=== PATIENT | female | born 1980 | race Hispanic/Latino ===

== ENCOUNTER 2017-03-21 18:13 | Outpatient (CLI) | payer BC ==
[2017-03-21] MEDS ORDERED: LACTATED RINGERS 500 ML IV ONE (18:18)
--- NOTE | 2017-03-21 19:16 | Event Note ---
<JAZMIN GENTILE - Last Filed: 03/21/17 19:13> Date: 03/21/17 Patient slipped down wet stairs and landed on bottom, initially reported no FM but she is now feeling movement. u/s showed no evidence of abruption. patient denies cramping, ctx leaking or bleeding. Abd soft and nontender. Blood type A+ . Patient c/o tailbone pain but denies need for medication at this time. Will observe for ctx and d/c home if stable. <JULIÁN ALEXANDRA - Last Filed: 03/21/17 22:49> Agree with note and exam. d/c home if stable.
[2017-03-21] MEDS ORDERED: MORPHINE IM ONE (19:22)
[2017-03-21] MEDS ORDERED: BRETHINE ONE (23:00)
[2017-03-21] MEDS ORDERED: BRETHINE SUB-Q ONE (23:11)
[2017-03-21 23:40] VITALS: BP 99/59
--- NOTE | 2017-03-22 09:59 | Ultrasound Report ---
OB sonogram: Findings: Single intrauterine gestation noted with cephalic presentation. Placenta is fundal and grade 0. heart rate 152 per minute. No evidence of placental abruption. Impression: No evidence of abruption.
== END 2017-03-21 23:48 | disposition home or self-care (01) ==
LOC: TRG 18:13 → LD 18:14 → TRG 23:48
PROVIDERS: ATTEND Obstetrics & Gynecology
DX: O09.522 Supervision of elderly multigravida, second trimester (principal); O47.02 False labor before 37 completed weeks of gestation, second trimester; O26.892 Other specified pregnancy related conditions, second trimester; W01.0XXA Fall on same level from slipping, tripping and stumbling without subsequent striking against object, initial encounter; Z3A.23 23 weeks gestation of pregnancy; Y93.89 Activity, other specified; Y92.89 Other specified places as the place of occurrence of the external cause; Y99.8 Other external cause status
CPT/HCPCS: 76815; J2270; J3105; J7120

== ENCOUNTER 2017-07-15 20:18 | Inpatient (IN) | payer BC ==
[2017-07-15] MEDS ORDERED: MINERAL OIL PO PRN (22:39)
[2017-07-15] MEDS ORDERED: ePHEDrine SULFATE IV PRN (22:39)
[2017-07-15] MEDS ORDERED: SUBLIMAZE IV PRN (22:39)
[2017-07-15] MEDS ORDERED: BRETHINE IVP PRN (22:39)
[2017-07-15] MEDS ORDERED: XYLOCAINE 2% INFILTRATI ONE (22:39)
[2017-07-15] MEDS ORDERED: ZOFRAN IV PRN (22:39)
[2017-07-15] MEDS ORDERED: BRETHINE SUB-Q PRN (22:39)
--- NOTE | 2017-07-15 22:40 | History and Physical Report ---
Past History - Obstetrical History : 1 Medications and Allergies Allergies Allergy/AdvReac Type Severity Reaction Status Date / Time No Known Allergies Allergy Unverified 03/21/17 23:11 - Vital Signs Vital signs: Vital Signs Pulse BP 77 129/82 07/15/17 21:01 07/15/17 21:01 Temp Pulse Resp BP Pulse Ox 77 129/82 07/15/17 21:01 07/15/17 21:01 Results All other labs normal.
--- NOTE | 2017-07-15 22:50 | History and Physical Report ---
History of Present Illness Date of examination: 07/15/17 Date of admission: 07/15/17 Chief complaint: decreased movement History of present illness: Pt called provider c/o decreased movement stating in in 1.5 hours and lying down after hydration only noted two movements. Once in triage pt was note to have some late decelerations with contractions. Pt examined and cx favorable at 3-4/80/-1 to -2. Pt has been at this exam for the last several days with contractions. Pt EFW on 07/03/17 was 7lbs 14oz in the 76%tile. Pt continues to c /o contractions. Pt admitted for augmentation of labor due to decreased fm at late term. Nature of labor augmentation was d/w pt and her in detail. Risk of failure or arrest of labor due size were also d/w pt and and all questions were addressed and answered. hob grinder aware of admission. EDC Calculations LMP: 07/17/2017 EDC Confirmation: 07/17/2017 Gestational Age: 6 4/7 weeks Past History : 1 Past Medical History: Reviewed history from 04/15/2016 and no changes required: Negative Past Medical History Past Surgical History: Reviewed history from 04/15/2016 and no changes required: Knee Arthroscopy(R) oral Appendectomy (2015) Past Medical History Abnormal PAP: positive Social Hx: Patient is Smoking History: Patient has never smoked. Infection History Hx of STD: none Personal hx. of genital herpes: no Partner hx. of genital herpes: no Rash, Viral, or Febrile illness since last LMP? no Varicella/Chicken Pox Status: Previous Disease TB Risk: no PPD Result (mm): 06/2016 negative Genetic History Congenital Heart Defect: Mom: no Dad: no Amandeep Disease: Mom: no Dad: no Thalassemia Mom: no Dad: no Neural Tube Defect Mom: no Dad: no Down's Syndrome Mom: no Dad: no Tim-Sachs Mom: no Dad: no Sickle Cell Disease/Trait Mom: no Dad: no Hemophilia Mom: no Dad: no Muscular Dystrophy Mom: no Dad: no Cystic Fibrosis Mom: no Dad: no Casey Chorea Mom: no Dad: no Mental Retardation Mom: no Dad: no Fragile X Mom: no Dad: no Other Genetic/Chromosomal Disorder Mom: no Dad: no Child w/other defect Mom: no Dad: no Enviromental Exposures Enviromental Exposures Reviewed Xray Exposure: no Medication, drug, or alcohol use since LMP: no Chemical/Other Exposure: no Exposure to Cat Liter: no Hx of Parvovirus (Fifth Disease): no Active Medications (reviewed today): CITRANATAL B-CALM 20-1 & 25 (2) MG ORAL MISC (PRENAT W/O A [id number] &B6) 1 po qd Current Allergies (reviewed today): Past History Past Medical History: no pertinent history Past Surgical History: appendectomy, other (knee scope) 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 History: denies: abnormal PAP smear, chlamydia, gonorrhea, herpes, HIV, trichomonas Social history: no significant social history, - Obstetrical History Expected Date of Delivery: 07/17/17 Actual Gestation: 39 Week(s) 5 Day(s) : 1 Medications and Allergies Allergies Allergy/AdvReac Type Severity Reaction Status Date / Time No Known Allergies Allergy Unverified 03/21/17 23:11 Active Meds: Active Medications Ephedrine Sulfate (Ephedrine Sulfate) 10 mg IV Q2M PRN PRN Reason: Hypotension Stop: 07/15/17 22:44 Fentanyl (Sublimaze) 100 mcg IV Q2H PRN PRN Reason: Labor Pain Lactated Ringer's (Lactated Ringers) 1,000 mls @ 125 mls/hr IV DIRECT BRADY Lidocaine (Xylocaine 2%) 20 ml INFILTRATI ONCE ONE Stop: 07/15/17 22:40 Mineral Oil (Mineral Oil) 30 ml PO QHS PRN PRN Reason: Constipation Review of Systems All systems: negative - Vital Signs Vital signs: Vital Signs Pulse BP 77 129/82 07/15/17 21:01 07/15/17 21:01 Temp Pulse Resp BP Pulse Ox 77 129/82 07/15/17 21:01 07/15/17 21:01 - Physical Exam Breasts: Positive: deferred Cardiovascular: Normal S1, Normal S2 Lungs: Positive: Clear to auscultation, Normal air movement Abdomen: Positive: normal appearance, normal bowel sounds. Negative: distention Genitourinary (Female): Positive: normal external genitalia, normal perenium Vulva: both: normal (no lesions) - Obstetrical FHR: category 1 (now at this time previously was cat II) Cervical Dilatation: 3.5 Cervical Effacement Percentage: 80 station: -1 to -2 Uterine Contraction Pattern: Regular Uterine Tone Measurement Phase: Resting Uterine Contraction Intensity: Mild Results All other labs normal. Assessment and Plan - Patient Problems (1) 39 weeks gestation of Current Visit: Yes Status: Acute (2) Decreased movement during in third trimester, antepartum Current Visit: Yes Status: Acute Qualifiers: Fetus number: single or unspecified fetus Qualified Code(s): O36.8130 - Decreased movements, third trimester, not applicable or unspecified Plan to address problem: -now with movement but still with occasional late decel noted -labor augmentation at this time (3) Labor, prolonged latent phase Current Visit: Yes Status: Acute Plan to address problem: -labor augmentation -anticipate -all questions were addressed and answered.
[2017-07-15] MEDS ORDERED: PITOCin/NS 30 UNIT/500ML 30 UNITS/500 ML BAG IV SCH ×2 (23:00)
[2017-07-15] MEDS ORDERED: PITOCin/NS 20 UNIT/1000ML DRIP 20 UNITS/1,000 ML BAG IV SCH (23:00)
[2017-07-15 23:34] LABS: Hematocrit 35.1 % (30.3-42.9); Hemoglobin 11.9 gm/dl (10.1-14.3); Mean Corpuscular HGB Conc 34 % (30-34); Mean Corpuscular Hemoglobin 31 pg (28-32); Mean Corpuscular Volume 92 fl (79-97); Platelet Count 126 K/mm3 (140-440); Red Blood Count 3.83 M/mm3 (3.65-5.03); Red Cell Distribution Width 13.6 % (13.2-15.2); White Blood Count 11.4 K/mm3 (4.5-11.0)
[2017-07-15] MEDS: LACTATED RINGERS 1,000 ML IV SCH (23:35)
[2017-07-16] MEDS ORDERED: PEPCID IV SCH (04:45)
[2017-07-16] MEDS ORDERED: PEPCID IV ONE (04:55)
[2017-07-16] MEDS: LACTATED RINGERS 1,000 ML IV SCH ×3 (06:08→11:35)
--- NOTE | 2017-07-16 07:48 | Ultrasound Report ---
BIOPHYSICAL PROFILE: well-being. 2 - breathing movements 2 - movements 2 - posture and tone 2 - Qualitative amniotic fluid volume 8 - TOTAL SCORE OF POSSIBLE 8 Heart Rate (bpm) 151 Estimated gestational age 39 weeks 5 days. LIMITED OB ULTRASOUND: Gestation: Saini VU = 17.6 cm Heart Rate: 138 BPM
--- NOTE | 2017-07-16 07:58 | Progress Note ---
Assessment and Plan patient tolerating ctx well, occasional late decels noted on tracing. AROM clear fluid - ISE and IUPC. Plan for epidural and continued titration of pitocin. Dr. Fong aware of patient's status. - Patient Problems (1) 39 weeks gestation of Current Visit: Yes Status: Acute (2) Labor, prolonged latent phase Current Visit: Yes Status: Acute Subjective - Subjective Date of service: 07/16/17 Principal diagnosis: IUP @ 39+6, early labor Patient reports: movement normal, contractions Objective - Vital Signs Vital Signs: Vital Signs - 12hr 07/15/17 07/15/17 07/15/17 21:01 23:40 23:50 Temperature 98.3 F Pulse Rate 77 91 H Respiratory 18 Rate Blood Pressure 129/82 134/85 07/16/17 07/16/17 02:54 02:55 Temperature 98.3 F Pulse Rate 91 H Respiratory 18 Rate Blood Pressure 109/59 - Exam Breasts: normal Cardiovascular: Regular rate Lungs: Clear to auscultation, Normal air movement Abdomen: Present: normal appearance, soft, normal bowel sounds Vulva: both: normal Uterus: Present: normal FHR: category 2 Uterine Contraction Monitor Mode: Internal Cervical Dilatation: 3.5 (AROM, ISE and IUPC placed) Cervical Effacement Percentage: 80 station: -1 Uterine Contraction Pattern: Regular Uterine Tone Measurement Phase: Contraction Uterine Contraction Intensity: Mild Extremities: normal Deep Tendon Reflex Grade: Normal +2 - Labs Labs: Abnormal Labs 07/15/17 23:10 WBC 11.4 H Plt Count 126 L Laboratory Results - last 24 hr 07/15/17 07/15/17 23:10 23:10 WBC 11.4 H RBC 3.83 Hgb 11.9 Hct 35.1 MCV 92 MCH 31 MCHC 34 RDW 13.6 Plt Count 126 L Blood Type A POSITIVE Antibody Screen Negative
[2017-07-16] MEDS ORDERED: fentaNYL-BUPIV 2 MCG/ML-0.125% 200 MCG/100 ML BAG EPIDURAL ONE (08:55)
[2017-07-16] MEDS: fentaNYL-BUPIV 2 MCG/ML-0.125% 200 MCG/100 ML BAG EPIDURAL SCH ×2 (09:22→17:18)
--- NOTE | 2017-07-16 09:24 | Anesthesia Consultation ---
Anesthesia Consult and Med Hx Date of service: 07/16/17 - Airway Anesthetic Teeth Evaluation: Good ROM Head & Neck: Adequate Mental/Hyoid Distance: Adequate Mallampati Class: Class II Intubation Access Assessment: Probably Good - Pre-Operative Health Status ASA Pre-Surgery Classification: ASA2 Proposed Anesthetic Plan: Epidural, Spinal - Pulmonary Hx Asthma: No COPD: No Hx Pneumonia: No - Cardiovascular System Hx Hypertension: No - Central Nervous System Hx Seizures: No Hx Psychiatric Problems: No - Endocrine Hx Renal Disease: No Hx End Stage Renal Disease: No Hx Hypothyroidism: No Hx Hyperthyroidism: No - Hematic Hx Anemia: No Hx Sickle Cell Disease: No - Other Systems Hx Alcohol Use: No
[2017-07-16] MEDS ORDERED: ePHEDrine SULFATE IV PRN (10:30)
[2017-07-16] MEDS ORDERED: NARCAN 2 MG/2 ML IV PRN (10:30)
--- NOTE | 2017-07-16 11:41 | Progress Note ---
Assessment and Plan doing well, comfortable with epidural. SVE good change, continue to reposition 30 minutes and titrating pitocin per protocal. Dr. Fong updated. - Patient Problems (1) 39 weeks gestation of Current Visit: Yes Status: Acute (2) Labor, prolonged latent phase Current Visit: Yes Status: Acute Subjective - Subjective Date of service: 07/16/17 Principal diagnosis: IUP @ 39+6, labor, epidural Patient reports: new complaints (comfortable with epidural), movement normal Objective - Vital Signs Vital Signs: Vital Signs - 12hr 07/15/17 07/15/17 07/16/17 23:40 23:50 02:54 Temperature 98.3 F 98.3 F Pulse Rate 91 H Respiratory 18 18 Rate Blood Pressure 134/85 07/16/17 07/16/17 07/16/17 02:55 09:17 09:19 Temperature Pulse Rate 91 H 105 H 102 H Respiratory Rate Blood Pressure 109/59 145/70 126/60 07/16/17 07/16/17 07/16/17 09:22 09:24 09:25 Temperature 98.5 F Pulse Rate 97 H 98 H Respiratory Rate Blood Pressure 125/61 123/63 07/16/17 07/16/17 07/16/17 09:28 09:31 09:34 Temperature Pulse Rate 103 H 103 H 102 H Respiratory Rate Blood Pressure 114/59 112/58 113/61 07/16/17 07/16/17 07/16/17 09:37 09:54 10:08 Temperature Pulse Rate 90 78 93 H Respiratory Rate Blood Pressure 110/58 112/58 111/60 07/16/17 07/16/17 07/16/17 10:19 10:35 10:49 Temperature Pulse Rate 99 H 102 H 90 Respiratory Rate Blood Pressure 107/62 111/67 113/66 07/16/17 07/16/17 11:04 11:19 Temperature Pulse Rate 90 90 Respiratory Rate Blood Pressure 110/66 110/65 - Exam Breasts: normal Cardiovascular: Regular rate Lungs: Clear to auscultation, Normal air movement Abdomen: Present: normal appearance, soft Vulva: both: normal Uterus: Present: normal FHR: category 2 Uterine Contraction Monitor Mode: Internal Cervical Dilatation: 5.5 Cervical Effacement Percentage: 90 station: -1 Uterine Contraction Pattern: Regular Uterine Tone Measurement Phase: Contraction Uterine Contraction Intensity: Mild Extremities: normal Deep Tendon Reflex Grade: Normal +2 - Labs Labs: Abnormal Labs 07/15/17 23:10 WBC 11.4 H Plt Count 126 L Laboratory Results - last 24 hr 07/15/17 07/15/17 23:10 23:10 WBC 11.4 H RBC 3.83 Hgb 11.9 Hct 35.1 MCV 92 MCH 31 MCHC 34 RDW 13.6 Plt Count 126 L Blood Type A POSITIVE Antibody Screen Negative
[2017-07-16] MEDS ORDERED: XYLOCAINE 2% INFILTRATI ONE (16:54)
[2017-07-16] MEDS ORDERED: XYLOCAINE MPF 2% ONE (17:11)
--- NOTE | 2017-07-16 17:29 | Procedure Note ---
OB Delivery Note - Delivery Date of Delivery: 07/16/17 (VAVD Male) Systems Architect: JAZMIN GENTILE - Vaginal Delivery presentation: vertex Delivery position: OA (STEVE) Delivery induction: none Delivery augmentation: rupture of membranes, pitocin Delivery monitor: internal FHT, internal uterine Route of delivery: vacuum extraction Indicators for instrumentation: maternal exhaustion Delivery placenta: spontaneous Delivery cord: 3 umbilical vessels Episiotomy: midline Delivery laceration: 4th degree Delivery repair: vicryl Anesthesia: epidural Delivery comments: Male infant del with vac assist by Dr. Fong over midline epis, del STEVE. NICU and SILK EXAMINER at , infant handed off for assessment. 3 vessel cord clamped and cut, placenta del intact and complete. Pit to IVF. Repair of 4th degree by Dr. Fong. Apgars 7/8, wt 10#1. - A at 1 minute: 7 at 5 minutes: 8 Infant Gender: Male (10#1)
--- NOTE | 2017-07-16 17:52 | Event Note ---
Date: 07/16/17 Called in for pt being complete, pushing and +3. Unable to deliver and maternal exhaustion. Large infant. Vacuum applied to Occiput and traction for 2 contractions resulted in delivery of OA vertex with turtle sign, Pt already in Luis Armando. Gentle traction released anterior shoulder after 2nd degree episiotomy. Remainder of delivery accomplished. Normal 3rd stage. 4th degree laceration identified and repaired with some difficulty using 2-0 and 3-0 Vicryl after epidural dosed up. Anal sphincter was discontinuous at 12 o'clock and the circumference of the fascia surrounding the sphincter on both sides was reapproximated with figure of eight sutures. Remainder of repair in usual fashion except 2in rectal lac was incompletely closed due to part of it being through a large Right hemorrhoid. EBL 500mL. Patient tolerated procedure well.
[2017-07-16] MEDS ORDERED: LACTATED RINGERS 1,000 ML ONE (19:30)
[2017-07-16] MEDS ORDERED: PERCOCET 5/325 PO PRN (20:10)
[2017-07-16] MEDS ORDERED: PITOCin/NS 20 UNIT/1000ML DRIP 20 UNITS/1,000 ML BAG IV SCH (20:10)
[2017-07-16] MEDS ORDERED: TYLENOL PO PRN (20:10)
[2017-07-16] MEDS ORDERED: BENADRYL PO PRN (20:10)
[2017-07-16] MEDS ORDERED: LANSINOH TP PRN (20:10)
[2017-07-16] MEDS ORDERED: SODIUM CHLORIDE FLUSH SYRINGE 10 ML IV NR (20:10)
[2017-07-16] MEDS ORDERED: PHENERGAN PO PRN (20:10)
[2017-07-16] MEDS: NORCO 5/325 PO PRN (20:27)
[2017-07-16] MEDS: MOTRIN PO SCH (20:27)
[2017-07-16] MEDS: TUCKS PAD TP PRN (20:28)
[2017-07-16] MEDS ORDERED: COLACE PO SCH (22:00)
[2017-07-16] MEDS ORDERED: DULCOLAX PR PRN (22:00)
[2017-07-16] MEDS ORDERED: MILK OF MAGNESIA PO PRN (22:00)
[2017-07-17] MEDS: MOTRIN PO SCH ×4 (02:09→23:47)
[2017-07-17] MEDS: NORCO 5/325 PO PRN ×3 (02:09→17:21)
[2017-07-17 06:06] LABS: Hematocrit 21.9 % (30.3-42.9); Hemoglobin 7.8 gm/dl (10.1-14.3)
--- NOTE | 2017-07-17 08:07 | Progress Note ---
<SHARONDA PHAN - Last Filed: 07/17/17 08:03> Assessment and Plan - Patient Problems (1) Status post vacuum-assisted vaginal delivery Current Visit: Yes Status: Acute Plan to address problem: pt resting only c/o pain in perineum. Encouraged ice packs, tucks, dermaplast Pt voiced understanding. VSS FF below umb Lochia small perineum swollen, some redness, intact H&H 04/11 blood loss r/t to delivery Pt is asymptomatic PO iron started. Doing well s/o vac del P: continue pathway Adv diet and activity as tolerated. Subjective - Subjective Date of service: 07/17/17 ("My bottom hurts.") Principal diagnosis: Day #1 s/p VAVD Patient reports: appetite normal, voiding normally, pain well controlled, ambulating normally [place]: doing well Objective - Vital Signs Latest vital signs: Vital Signs Temp Pulse Resp BP BP 07/17/17 04:20 98.9 F 98 H 118/73 07/17/17 00:00 98.2 F 102 H 20 112/66 07/16/17 19:45 98.2 F 104 H 20 114/71 07/16/17 18:49 113 H 134/81 07/16/17 18:34 118 H 121/75 07/16/17 18:19 126 H 123/83 07/16/17 18:04 136 H 109/57 07/16/17 17:57 134 H 115/57 07/16/17 17:34 129 H 93/47 07/16/17 17:19 131 H 101/51 07/16/17 17:08 127 H 105/53 07/16/17 17:00 18 07/16/17 15:34 122 H 121/65 07/16/17 15:24 98.2 F 20 07/16/17 15:05 131 H 122/94 07/16/17 14:34 117 H 120/66 07/16/17 14:19 96 H 111/57 07/16/17 14:05 85 114/59 07/16/17 13:49 89 112/58 07/16/17 13:34 97 H 114/55 07/16/17 13:33 98.2 F 07/16/17 13:19 83 106/58 07/16/17 13:04 90 111/58 07/16/17 12:49 90 103/53 07/16/17 12:35 81 105/53 07/16/17 12:20 91 H 135/81 07/16/17 12:04 74 99/55 07/16/17 11:49 90 107/58 07/16/17 11:34 97 H 113/61 07/16/17 11:19 90 110/65 07/16/17 11:04 90 110/66 07/16/17 10:49 90 113/66 07/16/17 10:35 102 H 111/67 07/16/17 10:19 99 H 107/62 07/16/17 10:08 93 H 111/60 07/16/17 09:54 78 112/58 07/16/17 09:37 90 110/58 07/16/17 09:34 102 H 113/61 07/16/17 09:31 103 H 112/58 07/16/17 09:28 103 H 114/59 07/16/17 09:25 98 H 123/63 07/16/17 09:24 98.5 F 07/16/17 09:22 97 H 18 125/61 07/16/17 09:19 102 H 126/60 07/16/17 09:17 105 H 145/70 Intake and Output 07/16/17 07/17/17 07/17/17 22:59 06:59 14:59 Intake Total 720 Output Total 1550 Balance -830 Intake: Oral 720 Output: Urine 1550 Void 1550 Other: Total, Intake Amount 240 Total, Output Amount 400 Estimated Blood Loss 500 - Exam Breasts: Present: normal Cardiovascular: Present: Regular rate Lungs: Present: Normal air movement Abdomen: Present: normal appearance, soft Uterus: Present: normal, firm, fundal height below umbilicus Extremities: Present: normal Deep Tendon Reflex Grade: Normal +2 Incision: Present: edematous (4th degree vaginal repair), intact - Labs Labs: Abnormal lab results 07/17/17 Range/Units 05:21 Hgb 7.8 L D (10.1-14.3) gm/dl Hct 21.9 L D (30.3-42.9) % <GERMANIA,SYDNI D - Last Filed: 07/17/17 23:13> Subjective - Subjective Interval history: Pt resting in bed, doing well, present, questions encouraged and answered. Objective - Vital Signs Latest vital signs: Vital Signs Temp Pulse Resp BP Pulse Ox 07/17/17 15:40 97.9 F 96 H 20 123/83 98 07/17/17 08:20 97.4 F L 98 H 18 115/77 07/17/17 04:20 98.9 F 98 H 118/73 07/17/17 00:00 98.2 F 102 H 20 112/66 Intake and Output 07/17/17 07/17/17 07/18/17 14:59 22:59 06:59 Intake Total 340 Balance 340 Intake: Oral 340 Other: Total, Intake Amount 340 - Labs Labs: Abnormal lab results 07/17/17 Range/Units 05:21 Hgb 7.8 L D (10.1-14.3) gm/dl Hct 21.9 L D (30.3-42.9) %
[2017-07-17] MEDS: FEOSOL PO SCH ×2 (11:25→21:05)
[2017-07-17] MEDS: COLACE PO SCH ×2 (11:29→21:05)
--- NOTE | 2017-07-17 13:09 | Progress Note ---
Subjective Date of service: 07/17/17 Principal diagnosis: Day #1 s/p VAVD Interval history: 1st day after normal vaginal delivery Patient is in the bed, comfortable. Pain is well controlled with pain meds. Ambulated well. No residual neurological deficit. No anesthesia complications Objective - Constitutional Vitals: Vital Signs - 12hr 07/17/17 07/17/17 04:20 08:20 Temperature 98.9 F 97.4 F L Pulse Rate 98 H 98 H Respiratory 18 Rate Blood Pressure 118/73 115/77 [Right] - Labs CBC & Chem 7: 07/17/17 05:21 Labs: Abnormal lab results 07/17/17 Range/Units 05:21 Hgb 7.8 L D (10.1-14.3) gm/dl Hct 21.9 L D (30.3-42.9) %
[2017-07-17] MEDS: PRENATAL VITAMIN PO SCH (17:21)
[2017-07-18] MEDS: MOTRIN PO SCH (05:59)
[2017-07-18] MEDS: TUCKS PAD TP PRN (08:54)
[2017-07-18] MEDS: PRENATAL VITAMIN PO SCH (08:54)
[2017-07-18] MEDS: FEOSOL PO SCH (08:54)
[2017-07-18] MEDS: COLACE PO SCH (08:55)
--- NOTE | 2017-07-18 09:19 | Progress Note ---
Assessment and Plan patient doing well, c/o normal discomfort with 4th degree repair - PO meds helping. ambulating with out difficulty. Lochia scant, VSSAF, H&H stable. Plan for d/c home with f/u appointment in office for 1 week. - Patient Problems (1) Fourth degree perineal laceration Current Visit: Yes Status: Acute (2) Status post vacuum-assisted vaginal delivery Current Visit: Yes Status: Acute Subjective - Subjective Date of service: 07/18/17 Principal diagnosis: Day #2 s/p VAVD. 4th degree Patient reports: appetite normal, voiding normally, pain well controlled, flatus , ambulating normally, no dizzy ambulation, no nauseated : doing well, bottle feeding (breast and bottle feeding) Objective - Vital Signs Latest vital signs: Vital Signs Temp Pulse Resp BP Pulse Ox 07/18/17 00:00 98.0 F 98 H 20 120/76 07/17/17 15:40 97.9 F 96 H 20 123/83 98 Intake and Output 07/17/17 07/18/17 07/18/17 23:59 07:59 15:59 Intake Total 240 Balance 240 Intake: Oral 240 Other: Total, Intake Amount 240 # Voids Void 1 1 - Exam Breasts: Present: normal, Cardiovascular: Present: Regular rate Lungs: Present: Clear to auscultation, Normal air movement Abdomen: Present: normal appearance, soft, normal bowel sounds Vulva: both: laceration/episiotomy Uterus: Present: normal, firm, fundal height at umbilicus Extremities: Present: normal Deep Tendon Reflex Grade: Normal +2 Incision: Present: normal, dry, intact
--- NOTE | 2017-07-18 10:05 | Discharge Summary ---
Providers - Providers Date of Admission: 07/15/17 23:04 Date of discharge: 07/18/17 (desires d/c home) Attending physician: JULIÁN ALEXANDRA 07/16/17 20:10 Consult to Client Server Programmer [CONS] Routine Reason For Exam: assistance with , SNS Primary care physician: JULIÁN ALEXANDRA Hospitalization Reason for admission: active labor Delivery: Episiotomy: midline Laceration: 4th degree Incision: normal, dry, intact Other procedures: none complications: none Discharge diagnosis: IUP at term delivered [place] baby: male Hospital course: VAVD and 4th degree lac repair Condition at discharge: Good Disposition: DC-01 TO HOME OR SELFCARE - Discharge Diagnoses (1) Fourth degree perineal laceration Status: Acute (2) Status post vacuum-assisted vaginal delivery Status: Acute Plan - Discharge Medications Prescriptions: Docusate Sodium [Colace] 100 mg PO BID PRN #60 capsule PRN Reason: Constipation Ferrous Sulfate [Feosol 325 MG tab] 325 mg PO BID #60 tablet Ibuprofen [Motrin 800 MG tab] 800 mg PO Q8HR PRN #30 tablet PRN Reason: Pain Lidocain2.5%/Prilocai2.5% [Emla] 5 gm TP ONCE PRN #1 tube PRN Reason: Pain - Provider Discharge Summary Activity: routine, no sex for 6 weeks, no heavy lifting 4 weeks, no strenuous exercise Diet: routine Instructions: routine Additional instructions: [] Smoking cessation referral if applicable(refer to patient education folder for contact #) [] Refer to [facility]'s [facility] Booklet Call your doctor immediately for: * Fever > 100.5 * Heavy vaginal bleeding ( >1 pad per hour) * Severe persistent headache * Shortness of breath * Reddened, hot, painful area to leg or breast * Drainage or odor from incision. * Keep incision clean and dry at all times and follow doctor's instructions regarding bathing/showering - Follow up plan Follow up: JULIÁN ALEXANDRA MD [Primary Care Provider] - 7 Days (Congratulations!! Please call [phone] to schedule visit in 1 week. Callfor any questions or concerns. )
[2017-07-18 18:54] VITALS: BP 132/80
== END 2017-07-18 14:00 | disposition home or self-care (01) | DRG 775 ==
LOC: TRG 20:18 → LD 23:04 → OB 07-16 19:57
PROVIDERS: ADMIT Obstetrics & Gynecology; ATTEND Obstetrics & Gynecology
PROC: 10D07Z6 Extraction of Products of Conception, Vacuum, Via Natural or Artificial Opening (ICD-10-PCS; principal; 2017-07-16)
PROC: 0DQP0ZZ Repair Rectum, Open Approach (ICD-10-PCS; 2017-07-16)
PROC: 0W8NXZZ Division of Female Perineum, External Approach (ICD-10-PCS; 2017-07-16)
PROC: 3E0R3BZ Introduction of Anesthetic Agent into Spinal Canal, Percutaneous Approach (ICD-10-PCS; 2017-07-16)
PROC: 00HU33Z Insertion of Infusion Device into Spinal Canal, Percutaneous Approach (ICD-10-PCS; 2017-07-16)
DX: O63.1 Prolonged second stage (of labor) (principal); O70.3 Fourth degree perineal laceration during delivery; O75.81 Maternal exhaustion complicating labor and delivery; Z3A.39 39 weeks gestation of pregnancy; Z37.0 Single live birth; O76 Abnormality in fetal heart rate and rhythm complicating labor and delivery
CPT/HCPCS: 36415; 76815; 76819; 85014; 85018; 85027; 86592; 86850; 86900; 86901; 88307; 99211; A6250; G0463; J2405; J2590; J3010; J7120